=== PATIENT | male | born 1980 | race Caucasian/White ===

== ENCOUNTER 2019-09-29 21:39 | Emergency (ER) | payer SELFPAY ==
[~2019-09-29] VITALS: Ht 188 cm; Wt 84.2 kg
[2019-09-29] MEDS ORDERED: GABA-1171 PO (21:50)
[2019-09-30] MEDS ORDERED: AUGM500T34 PO (01:02)
[2019-09-30 01:15] VITALS: BP 129/81
[2019-09-30] MEDS ORDERED: AUGMENTIN 875 MG TAB PO ONE (01:15)
== END 2019-09-30 01:18 | disposition home or self-care (01) ==
LOC: M ED 21:39
DX: K04.7 Periapical abscess without sinus (principal); Z88.1 Allergy status to other antibiotic agents; Z88.2 Allergy status to sulfonamides; F17.210 Nicotine dependence, cigarettes, uncomplicated